=== PATIENT | female | born 1965 | race Caucasian/White ===

== ENCOUNTER 2017-04-22 11:36 | Day surgery (SDC) | payer MEDICARE, OTHER ==
[~2017-04-22] VITALS: Ht 157.5 cm; Wt 63.4 kg
[2017-04-22 12:00] VITALS: Ht 157.5 cm; Wt 63.4 kg
--- NOTE | 2017-04-22 12:08 | OPPN ---
Date/Time of Note Date/Time of Note DATE: 04/22/17 TIME: 12:05 Proc Note GI Procedure date: Apr 22, 2017 Pre-procedure Diagnosis Blanca Mckenzie Post-procedure Diagnosis 1. Duodenal Polyps x 3 2. Gastric Polyps x 6 3. Gastritis Operation Performed Upper Endoscopy After informed consent, the patient was placed in left lateral position and sedated per anesthesia. The Olympus video endoscope was easily passed the patient's esophagus. The instrument advanced to the stomach. The pylorus was seen. The duodenal bulb and second portion of the duodenum were carefully examined. The third portion of the duodenum was entered and appeared normal. Within the second portion of the duodenum there were 3 polypoid lesion seen and removed in toto with biopsy forceps. There was no untoward bleeding from these sites. The instruments then removed patient's stomach. There were multiple diminutive polyps noted within the gastric fundus. Process Chemist biopsies of 6 of these were performed. There is no intra-bleeding from the sites. In addition there was diffuse erythema of the stomach. Represent biopsies were performed histologic examination. Turnaround procedure was within normal limits. A small hiatal hernia was noted the instrument patient's esophagus which appeared normal. The instrument patient left the patient tolerated well. Complications: None Surgeon: ELAINE CALVILLO MD Anesthesia Type: MAC Anesthesiologist: MICHELLE MARTINEZ Estimated blood loss: none Transfusion Required: no Complications: no Pt Condition post procedure: stable Indications ELAINE Prather MD Apr 22, 2017 12:08
[2017-04-22] MEDS ORDERED: LIDOCAINE 2% (SDV) 5 ML INJ ONE (12:17)
[2017-04-22] MEDS ORDERED: PROPOFOL 40 ML ONE (12:17)
[2017-04-22 12:27] VITALS: BP 121/69; PULSE 86; RESP 18
[2017-04-22] MEDS ORDERED: loloestrin PO (13:03)
--- NOTE | 2017-04-22 13:33 | OPPN ---
Date/Time of Note Date/Time of Note DATE: 04/22/17 TIME: 13:30 Proc Note GI Free Text/Dictation Colonoscopy Procedure date: Apr 22, 2017 Pre-procedure Diagnosis Peutz-Jeghers syndrome Post-procedure Diagnosis Polyps of the descending and sigmoid colon removed Operation Performed Colonoscopy Surgeon: ELAINE CALVILLO MD Anesthesia Type: MAC Anesthesiologist: MICHELLE MARTINEZ Estimated blood loss: none Transfusion Required: no Pt Condition post procedure: stable Operative\Procedure Findings After informed consent, the patient was placed in the lateral position and sedated per anesthesia. The Olympus pediatric video colonoscope was easily passed in patient's rectum. The incision at the sigmoid descending transverse descending colon to the cecum. The appendiceal orifice and ileocecal valve were identified. Ileocecal valve was traversed. Normal ileum was encountered. The preparation here and throughout the colon was fair. The instrument slowly removed to the cecum and ascending and transverse colon. Residual stool was lavaged clear throughout. In the descending colon there were 4 diminutive polypoid lesions less than 5 mm in size each removed with biopsy forceps. In the sigmoid colon there were 4 diminutive polypoid lesions less than 5 mm in size removed with biopsy forceps. There was no untoward bleeding from any of the sites. The instrument to remove the remaining sigmoid colon to the rectum. Turnaround procedure within the rectum which was within normal limits. The patient tolerated well. Complications: None ELAINE CALVILLO MD Apr 22, 2017 13:33
[2017-04-22 13:51] VITALS: PULSE 62; RESP 14
== END 2017-04-22 15:13 | disposition home or self-care (01) ==
LOC: GIL 11:36
PROVIDERS: ATTEND Internal Medicine Gastroenterology
DX: Q85.8 Other phakomatoses, not elsewhere classified (principal); D12.5 Benign neoplasm of sigmoid colon; D12.4 Benign neoplasm of descending colon; K31.7 Polyp of stomach and duodenum; E66.9 Obesity, unspecified; Z68.25 Body mass index [BMI] 25.0-25.9, adult